=== PATIENT | male | born 1990 ===

== ENCOUNTER 2022-01-09 16:19 | Emergency (ER) | payer OTHER, SELFPAY ==
[2022-01-09 16:25] VITALS: BP 121/103; PULSE 106; RESP 18; TEMP 37.1; O2SAT 100
--- NOTE | 2022-01-09 17:17 | ED.PSYCH ---
HPI - Psych General Chief Complaint: Psychiatric Symptoms Stated Complaint: psych evaluation - not feeling like self Time Seen by Provider: 01/09/22 16:55 History of Present Illness HPI Narrative: 31-year-old male presents the emergency room for evaluation of insomnia. Patient states that over the last 3 to 4 days he has not slept at all. Patient reports right now he is got a headache and feels hung over, and is unable to sit still. Patient states about 3 weeks ago his had a new baby and he has not been sleeping since. Patient states that he has been averaging about 2 to 3 hours of sleep at night. Reports that he is mind is racing and cannot fall asleep, and wakes up multiple times throughout the night. Patient denies HI or SI. Patient denies visual or auditory hallucinations. Patient states that he has a safe environment to return to. Patient denies any psych history. Patient states that his cousin does have schizophrenia and his father has an unknown mental disorder. Patient states he used to be a heavy alcohol user, states his last drink was in June 2021. Patient states that he uses cannabis several times throughout the week. Related Data Allergies Allergy/AdvReac Type Severity Reaction Status Date / Time No Known Allergies Allergy Mild Verified 03/28/08 18:13 Review of Systems Review of Systems: CONSTITUTIONAL: Denies fever, chills, or sweats. EYES: Denies visual changes, redness, or discharge. ENT: Denies rhinorrhea, congestion, sore throat, or otalgia. CARDIOVASCULAR: Denies chest pain, palpitations, or edema. RESPIRATORY: Denies cough or dyspnea. GASTROINTESTINAL: Denies abdominal pain, nausea, vomiting, or diarrhea. GENITOURINARY: Denies dysuria or hematuria. SKIN: Denies rash or itching. MUSCULOSKELETAL: Denies back pain, joint pain, or myalgia. NEUROLOGIC: Denies headache, numbness, dizziness, or weakness. PSYCHIATRIC: Reports anxiety. PMFSH Family History Family History Father Family history of glaucoma Hypertension Family history of arthritis Social History Social History Alcohol intake: current Substance use type: marijuana Exam Narrative: GENERAL: Well-appearing, well-nourished, and in no acute distress. HEAD: Normocephalic, atraumatic. EYES: PERRLA and EOMI. CHEST: Clear to auscultation. No respiratory distress. No wheezes rales or rhonchi HEART: Regular rate and rhythm. No murmur heard. Normal peripheral pulses. ABDOMEN: Soft, nontender, nondistended, normal active bowel sounds. EXTREMITIES: Normal range of motion. No edema. SKIN: Warm, dry, no rash. NEURO: No focal deficits. Alert and oriented x3. PSYCH: Normal mood and affect. Course Vital Signs Vital signs: Vital Signs Temperature 37.1 C 01/09/22 16:25 Pulse Rate 106 H 01/09/22 16:25 Respiratory Rate 18 01/09/22 16:25 Blood Pressure 121/103 H 01/09/22 16:25 Pulse Oximetry 100 01/09/22 16:25 Temperature 37.1 C 01/09/22 16:25 Pulse Rate 106 H 01/09/22 16:25 Respiratory Rate 18 01/09/22 16:25 Blood Pressure 121/103 H 01/09/22 16:25 Pulse Oximetry 100 01/09/22 16:25 MDM - Psych Lab Data Result diagrams: 01/09/22 17:33 01/09/22 17:33 Labs: Lab Results 01/09/22 01/09/22 01/09/22 Range/Units 17:33 17:33 17:33 WBC 10.5 H (4.5-10.0) K/mm3 RBC 4.80 (4.6-6.20) M/mm3 Hgb 13.7 L (14.0-18.0) g/dL Hct 39.2 L (42.0-52.0) % MCV 81.7 (80-100) fl MCH 28.5 (26-34) pg MCHC 34.9 (32-36) g/dl RDW 12.1 (11.5-14.5) % Plt Count 287 (150-375) k/mm3 MPV 10.7 H (7.4-10.4) fl Immature Gran % (Auto) 0.2 (0-0.5) % Neut % (Auto) 76.6 H (45.5-73.1) % Lymph % (Auto) 15.1 L (18.3-44.2) % Pratt % (Auto) 7.4 (2.6-8.5) % Eos % (Auto) 0.1 (0-4.4) % Baso % (Auto) 0.6 (0.2-1.2) % Lymph # (Auto
[2022-01-09 17:38] LABS: Basophils Absolute Auto 0.1 K/mm3 (0.0-0.1); Basophils Percent Auto 0.6 % (0.2-1.2); Eosinophils Percent Auto 0.1 % (0-4.4); Hematocrit 39.2 % (42.0-52.0); Hemoglobin 13.7 g/dL (14.0-18.0); Immature Granulocyte Absolute 0.02 K/mm3 (0.00-0.031); Immature Granulocyte Percent A 0.2 % (0-0.5); Lymphocytes Absolute Auto 1.59 K/mm3 (0.9-3.2); Lymphocytes Percent Auto 15.1 % (18.3-44.2); Mean Corpuscular HGB Conc 34.9 g/dl (32-36); Mean Corpuscular Hemoglobin 28.5 pg (26-34); Mean Corpuscular Volume 81.7 fl (80-100); Mean Platelet Volume 10.7 fl (7.4-10.4); Monocytes Absolute Auto 0.8 K/mm3 (0.1-0.6); Monocytes Percent Auto 7.4 % (2.6-8.5); Neutrophils Percent Auto 76.6 % (45.5-73.1); Platelet Count Result 287 k/mm3 (150-375); Red Cell Distribution Width 12.1 % (11.5-14.5); White Blood Count 10.5 K/mm3 (4.5-10.0)
[2022-01-09 17:50] LABS: Acetaminophen < 10 ug/mL (10-30); Ethanol < 10 mg/dL (<10); Salicylate < 1.0 mg/dL (2-20)
[2022-01-09 17:51] LABS: Alanine Aminotransferase 38 U/L (4-50); Alkaline Phosphatase 65 U/L (38-126); Anion Gap 14 mmol/L (8-16); Aspartate Amino Transferase 43 U/L (17-59); Blood Urea Nitrogen 10 mg/dL (9-20); Calcium 9.6 mg/dL (8.4-10.2); Carbon Dioxide 19 mmol/L (22-30); Chloride 103 mmol/L (98-107); Estimated CRCL calculation 136 ml/min; Estimated Glomerular Filt Rate > 60; Glucose 112 mg/dL (65-110); Potassium 3.3 mmol/L (3.4-5.0); Sodium 136 mmol/L (137-145)
[2022-01-09] MEDS: SODIUM CHLORIDE 0.9% IV 1,000 ML 999 ML IV CONT (18:45)
[2022-01-09] MEDS: LORazepam INJ (*CRX) 2 MG/ML VIAL 1 MG IV PUSH (18:55)
[2022-01-09 19:24] LABS: Add Urine Microscopic? YES; Appearance Urine Clear (Clear); Bilirubin Urine Negative (Negative); Blood Urine Negative (Negative); Color Urine Yellow (Yellow); Glucose Urine UA Negative (Negative); Ketones Urine 2+ mg/dL (Negative); Leukocyte Esterase Ur Negative LEU/UL (Negative); Nitrate Urine Negative (Negative); Protein Urine Negative (Negative); Specific Grav Ur 1.012 (1.001-1.035); Urobilinogen Urine Negative mg/dL (<2.0); WBC Urine 0-3 /hpf
[2022-01-09 19:38] LABS: Amphetamine Screen Urine Negative (Negative); Barbiturate Screen Urine Negative (Negative); Benzodiazepines Screen Urine Negative (Negative); Cannabinoid Screen Urine Positive (Negative); Cocaine Screen Urine Negative (Negative); Methadone Screen Urine Negative (Negative); Opiate Screen Urine Negative (Negative); Phencyclidine Screen Urine Negative (Negative)
[2022-01-09 20:00] VITALS: BP 120/80; PULSE 90; RESP 18; O2SAT 100
== END 2022-01-09 20:00 | disposition home or self-care (01) ==
PROVIDERS: Emergency Provider Nurse Practitioner Family; PCP Family Medicine
DX: Z72.820 Sleep deprivation (principal)
CPT/HCPCS: 36415; 80053; 80307; 81001; 85025; 96361; 96374; 99284; J2060; J7030